=== PATIENT | male | born 1985 ===

== ENCOUNTER 2020-09-20 07:38 | Emergency (ER) | payer SELFPAY ==
[~2020-09-20] VITALS: Ht 172.7 cm; Wt 80.3 kg
[2020-09-20 07:54] VITALS: BP 134/69
[2020-09-20] MEDS ORDERED: ACETAMINOPHEN 325 MG TABLET PO ONE (08:00)
[2020-09-20] MEDS ORDERED: KETOROLAC TROMETHAMINE INJ 30 MG/ML VIAL IM ONE (08:00)
[2020-09-20] MEDS ORDERED: KETOROLAC TROMETHAMINE 15 MG/ML VIAL ONE (08:12)
--- NOTE | 2020-09-20 08:36 | NUR ---
PATIENT A/OX4, BREATHING EVEN AND UNLABORED, NO SOB NOTED, NEEDS ATTENDED. KEPT COMFORTABLE.
--- NOTE | 2020-09-20 08:37 | NUR ---
Patient discharged to home in stable condition. Written and verbal after care instructions given. Patient verbalizes understanding of instruction.
== END 2020-09-20 08:38 | disposition home or self-care (01) ==
LOC: ER 07:44
DX: U07.1 COVID-19 (principal); R07.89 Other chest pain; R50.9 Fever, unspecified; R00.0 Tachycardia, unspecified
CPT/HCPCS: 93005; 96372; 99283; J1885